=== PATIENT | female | born 2000 | race Caucasian/White ===

== ENCOUNTER 2022-12-30 03:23 | Emergency (ER) | payer OTHER ==
[2022-12-30 04:04] VITALS: BP 123/78; O2SAT 100
--- NOTE | 2022-12-30 04:29 | ED Physician Documentation ---
PD HPI SKIN - Stated complaint Stated Complaint: LIP SWOLLEN - Chief complaint Chief Complaint: Wound - History obtained from History obtained from: Patient - Additional information Additional information: HPI from patient. Patient c/o upper lip swelling, erythema, pain, and purulent discharge at and around the piercing sites (both cutaneous and mucosal aspects) of an upper lip "medusa" piercing (in philtrum). She has had this piercing for 1.5-2 months. Approximately 1 week ago, she noted mild swelling and discomfort but rapidly worsening pain and swelling over past 2-3 days with redness and purulent d/c. She is further concerned because the swelling has prevented her from being able to remove the piercing. Review of Systems Constitutional: denies: Fever PD PAST MEDICAL HISTORY - Past Medical History Past Medical History: No - Present Medications Home Medications: Ambulatory Orders Medication Instructions Recorded Confirmed Sulfamethox/Trimeth 800/160 1 each PO BID #14 tablet 06/20/19 [Bactrim Ds 800/160] - Allergies Allergies/Adverse Reactions: Allergies Allergy/AdvReac Type Severity Reaction Status Date / Time No Known Drug Allergies Allergy Verified 06/20/19 15:17 - Social History Does the pt smoke?: No Smoking Status: Never smoker PD ED PE NORMAL - Vitals Vital signs reviewed: Yes - General General: Alert and oriented X 3, No acute distress, Well developed/nourished PD ED PE EXPANDED - HEENT HEENT: Other (swelling, erythema, TTP upper lip at philtrum with piercing in place; there is TTP and purulent discharge at mucoscal aspect of piercing. There is no visible piercing bar at this site) HEENT Visual: 1 - rash (focal confluent erythema), swelling, tenderness Results - Vitals Vitals: Oxygen O2 Source Room air PD Medical Decision Making - ED course Complexity details: considered differential, d/w patient ED course: I was able to grasp the tip of the piercing post (located at cutaneous aspect) with pickups ; with this stabilization of the post, the jewel was able to be unscrewed. The grasp on the post was already tenuous and shortly after removal of the jewel, the post slipped from the grasp of the forceps and disappeared into the piercing site. This became a challenging situation given that neither end of the piercing was visible at this point. I discussed options for pain control with patient to allow for further manipulation of the FB. She declines narcotic/opiate medication, says she does not like the way they make her feel. Local anesthesia would be challenging (would need to inject into an already inflamed and purulent area on both cutaneous and mucosal aspects), and regional block would likely require bilateral infraorbital blocks given that the area involved is midline. I tried several times to probe with a thin, metallic instrument (used blunt optic dirk) and made contact with the FB as indicated by a metallic click, but any significant pressure from anterior to posterior was too painful for patient. I contacted Dr. Williams Mosley and he can see patient in his office this morning. Patient is comfortable with this plan. She is instructed to be NPO and to have someone ready to drive her home from the office in case conscious sedation is un dertaken. Departure - Departure Disposition: 01 Home, Self Care Clinical Impression: Facial infection, Foreign body (FB) in soft tissue Condition: Good Instructions: ED Cellulitis Facial, ED Foreign Body Soft Tissue Follow-Up: WILLIAMS MOSLEY [Physician No Access] - Comments: I was able to remove the jewel from your lip piercing, but the rest of the piercing is still in the upper lip and there is no visible part of the post/bar at either side of the piercing. I discussed your case with Dr. Williams Mosley. He can see you in his office this morning and will address the problem. His office information is included in these discharge sheets. You do not need to call ahead; go to his office anytime this morning after 8 AM. Do not eat or drink anything until he has finished his assessment and treatment. Be sure to have a p d driver that can take you home, as it is possible that he gives you sedating medication. Forms: PCP List Discharge Date/Time: 12/30/22 07:03
== END 2022-12-30 07:03 | disposition home or self-care (01) ==
LOC: ED 03:23
DX: S00.551A Superficial foreign body of lip, initial encounter (principal); X58.XXXA Exposure to other specified factors, initial encounter; L08.9 Local infection of the skin and subcutaneous tissue, unspecified
CPT/HCPCS: 99282; 99283